=== PATIENT | female | born 1985 | race Two or more races ===

== ENCOUNTER 2017-08-26 18:05 | Emergency (ER) | payer OTHER ==
[~2017-08-26] VITALS: Ht 157.5 cm; Wt 54.9 kg
[2017-08-26 19:34] VITALS: BP 133/79
--- NOTE | 2017-08-26 19:54 | Emergency Room Report ---
History of Present Illness General Chief Complaint: Altered Level of Consciousness Source: Patient Present Illness HPI This patient is brought in by EMS from the street. EMS brought her in after being called by a bystander for altered mental status. The patient does not want to answer any questions. She is alert. She requested a sandwich and some water. She has otherwise has no complaints. Allergies: Coded Allergies: No Known Allergies (Unverified , 08/26/17) Patient History Past Medical History: unable to obtain Past Surgical History: unable to obtain Pertinent Family History: unable to obtain Last Menstrual Period: unknown Reviewed Nursing Documentation: PMH: Agreed; PSxH: Agreed Nursing Documentation-PMH History Of Psychiatric Problem: Yes - schizoprenia Review of Systems All Other Systems: limited Physical Exam Vital Signs Date Time Temp Pulse Resp B/P (MAP) Pulse Ox O2 Delivery O2 Flow Rate FiO2 08/26/17 18:00 97.6 83 16 133/88 99 Room Air 97.5 Sp02 EP Interpretation: reviewed, normal General Appearance: no apparent distress, alert, GCS 15, non-toxic Head: normocephalic, atraumatic Eyes: bilateral eye normal inspection, bilateral eye PERRL ENT: hearing grossly normal, normal pharynx, no angioedema, normal voice Neck: full range of motion, supple/symm/no masses Respiratory: chest non-tender, lungs clear, normal breath sounds, no respiratory distress, no retraction, no accessory muscle use, speaking full sentences Cardiovascular #1: regular rate, rhythm, no edema Gastrointestinal: normal bowel sounds, non tender, soft, non-distended, no guarding, no rebound Rectal: deferred Musculoskeletal: back normal, gait/station normal, normal range of motion Neurologic: alert, responsive, motor strength/tone normal, sensory intact, speech normal Psychiatric: judgement/insight normal, no suicidal/homicidal ideation Skin: normal color, no rash, warm/dry, well hydrated Medical Decision Making Diagnostic Impression: Primary Impression: Substance abuse ER Course This patient appears to be homeless and has a presentation consistent with substance abuse and intoxication. The patient did not have any specific medical complaints. Patient had a normal medical screening exam and normal vital signs. The patient requested a sandwich and water. Overall, the patient is well-appearing and nontoxic. The patient declined social sciences lecturer. She is given a list of the local shelters. Patient is given return precautions and follow-up instructions. Last Vital Signs Date Time Temp Pulse Resp B/P (MAP) Pulse Ox O2 Delivery O2 Flow Rate FiO2 08/26/17 19:34 98.4 83 16 133/79 99 Room Air 98.4 Disposition: HOME, SELF-CARE Condition: Improved Scripts Unable to Obtain Active Prescriptions or Reported Meds Referrals: NON PHYSICIAN (PCP) Candy Meneses DO Aug 26, 2017 19:54
[2017-08-26 20:03] VITALS: BP 123/78
[2017-08-26 20:10] VITALS: BP 123/78
== END 2017-08-26 20:10 | disposition home or self-care (01) ==
LOC: EDBD 18:05 → EMR 18:47
DX: F19.10 Other psychoactive substance abuse, uncomplicated (principal); Z59.0 Homelessness; F20.9 Schizophrenia, unspecified
CPT/HCPCS: 99283